=== PATIENT | female | born 1940 | race Caucasian/White ===

== ENCOUNTER → 2016-11-10 | Outpatient (CLI) | payer OTHER ==
--- NOTE | ~2016-11-10 | MY29 ---
[facility] A Service of [facility] & [facility] RADIOLOGY TEXT RESULTS PATIENT: SEAN DENNIS LOCATION: [facility] : 44 UNIT #: [id number] AGE: [address]: Regla Sykes MD SEX: F ORDER DR: [id number] [facility]. [place], [place] [address] [id number] O MR#: [id number] Acc #: [id number] NAME: SEAN DENNIS : 1940 SEX: F STUDY DATE/TIME: 11/10/2016 11:06 UNIT: [facility] ROOM: STUDY DESCRIPTION: MY HANNAH SCREENING W/ CAD BILAT Attending Physician: Regla Sykes M.D. Referring Physician: Regla Sykes M.D. Ordering Physician: Regla Sykes M.D. Primary Care Physician: Regla Sykes M.D. MEDICAL IMAGING REPORT This report is preliminary unless electronic signature is present EXAM Bilateral digital screening mammogram with CAD. COMPARISON October 02, 2015, February 13, 2014, August 20, 2011 INDICATIONS Breast cancer screening. 75-year-old asymptomatic female who reports unspecified family history of breast cancer. FINDINGS There are scattered fibroglandular densities. There are benign arterial and secretory calcifications in both breasts. There are no suspicious findings in either breast. IMPRESSION 1. No mammographic evidence of malignancy. Continued annual screening mammography and clinical breast exam are recommended. 2. Arterial calcifications in both breasts. Correlation for signs and symptoms of atherosclerotic disease elsewhere in the body is recommended. Patients over the age of 40 are entered into a reminder system with target due date for the next mammogram. A result letter will also be sent to the patient. BIRADS: 2 Benign Finding Dictated by... Jim Rodriguez M.D. THIS IS AN ELECTRONICALLY VERIFIED REPORT [facility] A Service of [facility] & [facility] RADIOLOGY TEXT RESULTS PATIENT: SEAN DENNIS LOCATION: [facility] : 44 UNIT #: [id number] AGE: [address]: Regla Sykes MD SEX: F ORDER DR: Jim Rodriguez M.D. at 11/12/2016 11:47 AM BLM/psc TD: 11/10/2016 21:39 JOB #: [id number] MEDICAL IMAGING REPORT Page 1 of 1 COPY
== END | disposition home or self-care (01) ==
LOC: CWCC 10:42
DX: Z12.31 Encounter for screening mammogram for malignant neoplasm of breast (principal); Z80.3 Family history of malignant neoplasm of breast; I70.8 Atherosclerosis of other arteries
CPT/HCPCS: G0202